=== PATIENT | female | born 1975 | race Caucasian/White ===

== ENCOUNTER 2017-11-03 21:19 | Emergency (ER) | payer MEDICAID ==
--- NOTE | 2017-11-03 23:23 | EDM.PDOC ---
ED HPI GENERAL MEDICAL PROBLEM - General Chief Complaint: Gastrointestinal Problem Stated Complaint: [facility] Time Seen by Provider: 11/03/17 23:04 Source of Information: Reports: Patient, Family () History Limitations: Reports: No Limitations - History of Present Illness INITIAL COMMENTS - FREE TEXT/NARRATIVE: The patient states that she has not had a bowel movement in about 5 days, and even then had difficulty passing stool, but has not felt significant rectal pressure for the past 5-6 hours. She states that she has tried to pass the stool at home, without success. She states that she has had issues with constipation since around 2016. Coincidentally, the patient began taking [id number] Benadryl, 4 tablets (100 mg) every 6 hours as a treatment for her MS. She relates that she and her moved from [place] in January 2017, and that she has not established care with a Neurologist or a PCP in this area since moving. She was receiving treatment for her MS in [place], but has not received any since moving. Despite having issues with constipation, the patient does not take a stool softener. She states that [facility], but does not believe that she got the enema tip into her rectum properly. Only liquid came out. The patient also relates that she has been unable to urinate today. She does not have a history of urinary retention. The patient is able to actively, but states that because of her untreated MS, she is nearly bedridden. - Related Data Allergies Allergy/AdvReac Type Severity Reaction Status Date / Time amoxicillin [From Augmentin] Allergy Anaphylactic Verified 11/03/17 21:28 Shock clavulanic acid Allergy Anaphylactic Verified 11/03/17 21:28 [From Augmentin] Shock meperidine [From Demerol] Allergy Vomiting Verified 11/03/17 21:28 Penicillins Allergy Anaphylactic Verified 11/03/17 21:28 Shock Home Meds: Home Meds Aspirin/Caffeine [Back & Body Pain Reliever Cplt] 1,000 mg PO Q6H PRN 11/03/17 [ History] diphenhydrAMINE HCl [Benadryl] 25 mg PO DAILY 11/03/17 [History] Past Medical History Cardiovascular History: Reports: Hypertension (untreated) [employer]ATEGY SPECIALIST History: Reports: Endometriosis, Other (See Below) (Ovarian cysts) Musculoskeletal History: Reports: Neck Pain, Chronic (Cervical disc disease) Neurological History: Reports: MS (untreated), Other (See Below) (Trigeminal neuralgia) Endocrine/Metabolic History: Reports: Obesity/BMI 30+, Other (See Below) ( Thyroid nodules) - Past Surgical History Female Surgical History: Reports: Cervical Conization, Cystoscopy, Other ( See Below) (Expiratory laparoscopy for endometriosis, with ALENA. Left ovarian cyst excision.) Social & Family History - Tobacco Use Smoking Status *Q: Former Smoker Years of Tobacco use: 20 Packs/Tins Daily: 1 Month/Year Tobacco Last Used: Quit 2007 - Caffeine Use Caffeine Use: Reports: Coffee, Soda - Alcohol Use Alcohol Use History: Yes Alcohol Use Frequency: Rarely - Recreational Drug Use Recreational Drug Use: No - Living Situation & Occupation Living situation: Reports: , with Spouse, with Family (2 sons, her father ) Occupation: Disabled ED ROS GENERAL - Review of Systems Review Of Systems: ROS reveals no pertinent complaints other than HPI. ED EXAM, GENERAL - Physical Exam Exam: See Below Exam Limited By: No Limitations General Appearance: Alert, WD/WN, No Apparent Distress Eye Exam: Bilateral Eye: Normal Inspection Ears: Normal External Exam, Hearing Grossly Normal Nose: Normal Inspection, No Blood Throat/Mouth: Normal Inspection, Normal Lips, Normal Voice, No Airway Compromise Head: Atraumatic, Normocephalic Neck: Normal Inspection, Full Range of Motion Respiratory/Chest: No Respiratory Distress, Lungs Clear, Normal Breath Sounds, No Accessory Muscle Use Cardiovascular: Normal Peripheral Pulses, Regular Rate, Rhythm, No Gallop, No JVD, No Murmur, No Rub Peripheral Pulses: 4+: Radial (L), Radial (R) GI/Abdominal: Normal Bowel Sounds, Soft, Non-Tender, No Organomegaly, No Distention, No Abnormal Bruit, No Mass, Other (Obese) (Female) Exam: Deferred Rectal (Female) Exam: Normal Rectal Tone, Other (Considerable amount of firm stool in the rectum). No: Perirectal Abscess Back Exam: Normal Inspection, Full Range of Motion, NT Extremities: Normal Inspection, Normal Range of Motion, No Pedal Edema, Normal Capillary Refill Neurological: Alert, Oriented, Normal Cognition, No Motor/Sensory Deficits Psychiatric: Normal Affect Skin Exam: Warm, Dry, Intact, Normal Color, No Rash Course - Vital Signs Last Recorded V/S: Last Vital Signs Temp 37.0 C 11/03/17 21:23 Pulse 113 H 11/03/17 21:23 Resp 18 11/03/17 21:23 BP 140/95 H 11/03/17 21:23 Pulse Ox 93 L 11/03/17 21:23 - Orders/Labs/Meds Orders: Active Orders 24 hr Category Date Time Status Enema [RC] ASDIRECTED Care 11/03/17 23:42 Active Abdomen 2V AP Flat Upright [CR] Stat Exams 11/03/17 21:53 Taken UA W/MICROSCOPIC [URIN] Stat Lab 11/03/17 22:20 Ordered Labs: Laboratory Tests 11/03/17 11/03/17 11/03/17 Range/Units 22:12 22:12 22:20 WBC 18.86 H (3.98-10.04) K/mm3 RBC 4.54 (3.98-5.22) M/mm3 Hgb 11.4 (11.2-15.7) gm/L Hct 35.6 (34.1-44.9) % MCV 78.4 L (79.4-94.8) fl MCH 25.1 L (25.6-32.2) pg MCHC 32.0 L (32.2-35.5) g/dl RDW Std Deviation 42.2 (36.4-46.3) fL Plt Count 469 H (182-369) K/mm3 MPV 9.3 L (9.4-12.3) fl Neutrophils % (Manual) 92 H (40-60) % Band Neutrophils % 0 (0-10) % Lymphocytes % (Manual) 4 L (20-40) % Atypical Lymphs % 1 % Monocytes % (Manual) 3 (2-10) % Eosinophils % (Manual) 0 L (0.7-5.8) % Basophils % (Manual) 0 L (0.1-1.2) Toxic Granulation Few Platelet Estimate Adequate Plt Morphology Comment Normal Polychromasia 1+ slight Poikilocytosis 1+ slight Anisocytosis 1+ slight Microcytosis 1+ slight Macrocytosis 1+ slight RBC Morph Comment Abnormal Sodium 136 (136-145) mEq/L Potassium 4.3 (3.5-5.1) mEq/L Chloride 103 (98-107) mEq/L Carbon Dioxide 22 (21-32) mEq/L Anion Gap 15.3 H (5-15) BUN 17 (7-18) mg/dL Creatinine 0.9 (0.55-1.02) mg/dL Est Cr Clr Drug Dosing 74.67 mL/min Estimated GFR (MDRD) > 60 (>60) mL/min BUN/Creatinine Ratio 18.9 H (14-18) Glucose 114 H (74-106) mg/dL Calcium 9.5 (8.5-10.1) mg/dL Total Bilirubin 0.3 (0.2-1.0) mg/dL AST 15 (15-37) U/L ALT 25 (14-59) U/L Alkaline Phosphatase 126 H (46-116) U/L C-Reactive Protein 1.6 H* (<1.0) mg/dL Total Protein 7.1 (6.4-8.2) g/dl Albumin 3.7 (3.4-5.0) g/dl Globulin 3.4 gm/dL Albumin/Globulin Ratio 1.1 (1-2) Urine Color Yellow (Yellow) Urine Appearance Clear (Clear) Urine pH 5.5 (5.0-8.0) Ur Specific [place] 1.020 (1.005-1.030) Urine Protein Negative (Negative) Urine Glucose (UA) Negative (Negative) Urine Ketones Negative (Negative) Urine Occult Blood Negative (Negative) Urine Nitrite Negative (Negative) Urine Bilirubin Negative (Negative) Urine Urobilinogen 0.2 (0.2-1.0) Ur Leukocyte Esterase Negative (Negative) Urine RBC 0-5 (0-5) /hpf Urine WBC 0-5 (0-5) /hpf Ur Epithelial Cells 0-5 (0-5) /hpf Urine Bacteria Not seen (FEW) /hpf Urine Mucus Few (FEW) /hpf Meds: Medications Discontinued Medications Generic Name Dose Route Start Last Admin Trade Name Freq PRN Reason Stop Dose Admin Ketorolac Tromethamine 60 mg 11/04/17 00:11 11/04/17 00:20 Toradol IM 11/04/17 00:12 60 mg ONETIME ONE Administration Lidocaine HCl 10 ml 11/03/17 23:40 11/04/17 00:20 Xylocaine 2% Jelly MUCMEM 11/03/17 23:41 10 ml ONETIME ONE Administration Ondansetron HCl 4 mg 11/04/17 00:11 11/04/17 00:20 Zofran Odt PO 11/04/17 00:12 4 mg ONETIME ONE Administration - Re-Assessments/Exams Free Text/Narrative Re-Assessment/Exam: 11/03/17 23:22 Upright abdominal radiograph appears to demonstrate stool in the cecum and a modest amount of stool in the rectum, but no stool seen elsewhere. Scoliosis is noted. Pelvic phleboliths incidentally noted. Formal read per the Radiologist pending. 11/03/17 23:32 Notified that the bladder scan demonstrated 462 mL. The patient was then straight catheter, recovering 600 mL urine. Repeat bladder scan and found 92 milliliters residual urine. I attempted to manually disimpact the patient, however, my efforts merely seemed to move the rectal stool around, and I was not able to extract any significant amount before the patient stated that she could not tolerate further efforts. We will see if the patient can now defecate. 11/03/17 23:42 I have ordered a Urojet, to be given rectally, followed by a mineral oil enema. 11/04/17 01:15 Notified by Alina NIEVES that the patient passed a large bowel movement following the mineral oil enema. She then passed a large amount of urine. She wanted an additional mineral oil enema, because she felt that there was still some stool that needs to be passed. Once finished, the patient may safely be discharged home. I suspect that the patient's urinary retention was related to stool pressing on her urethra, causing obstruction, and as such, now that she has passed the stool , I don't feel that she requires a urinary catheter, however, this issue does need to be rechecked as an outpatient. Departure - Departure Time of Disposition: 01:57 Disposition: Home, Self-Care 01 Condition: Good Clinical Impression: Constipation, Urinary retention - Discharge Information Referrals: PCP,None [Primary Care Provider] - Carissa Greer MD [Physician] - Forms: ED Department Discharge Additional Instructions: You were seen in the emergency room for constipation and inability to urinate. Workup in the ER included blood work, a urinalysis, a bladder scan, and x-rays of your abdomen. You were found to have significant constipation, relieved with manual disimpaction and mineral oil enemas. Once you were able to pass the constipation, you were then able to urinate adequately. The cause of your constipation is MOST LIKELY due to the Benadryl that you have been taking. We recommend that you discontinue Benadryl. We recommend that you start taking a bulk laxative, such as Metamucil, with plenty of water, daily. Follow-up with Dr. Carissa Greer as a PCP this coming week. She can help you find a Neurologist. If any other problems, please do not hesitate to return to the ER. - My Orders Last 24 Hours: My Active Orders 11/03/17 21:53 Abdomen 2V AP Flat Upright [CR] Stat 11/03/17 22:20 UA W/MICROSCOPIC [URIN] Stat 11/03/17 23:42 Enema [RC] ASDIRECTED - Assessment/Plan Last 24 Hours: My Active Orders 11/03/17 21:53 Abdomen 2V AP Flat Upright [CR] Stat 11/03/17 22:20 UA W/MICROSCOPIC [URIN] Stat 11/03/17 23:42 Enema [RC] ASDIRECTED
[2017-11-03] MEDS ORDERED: Lidocaine 2% Jelly 10 ML Urojet MUCMEM ONE (23:40)
[2017-11-04] MEDS ORDERED: Ondansetron 4 MG Tab.DIS PO ONE (00:11)
[2017-11-04] MEDS ORDERED: Ketorolac 60 MG/2 ML SDV IM ONE (00:11)
--- NOTE | 2017-11-06 08:37 | CR ---
Abdomen: Supine and upright views of the abdomen were obtained. Comparison: No prior exam. Mild scoliosis is noted within the spine. Calcifications are seen within the pelvis which are most likely due to phleboliths. Minimal increased stool is seen throughout the colon. Bowel gas pattern otherwise appears within normal limits. No free air is seen. No soft tissue abnormality is seen. Impression: 1. Incidental findings. Diagnostic code #2
== END 2017-11-04 02:05 | disposition home or self-care (01) ==
LOC: JD.ED 21:19
DX: K59.00 Constipation, unspecified (principal); R33.9 Retention of urine, unspecified; I10 Essential (primary) hypertension; Z88.1 Allergy status to other antibiotic agents; Z88.0 Allergy status to penicillin; Z88.5 Allergy status to narcotic agent; Z87.891 Personal history of nicotine dependence
CPT/HCPCS: 36415; 51798; 74019; 80053; 81001; 85007; 85027; 86140; 96374; 99285; A9270; J1885